=== PATIENT | male | born 1960 | race Caucasian/White ===

== ENCOUNTER 2025-05-20 18:34 | Emergency (ER) | payer OTHER ==
[~2025-05-20] VITALS: Ht 170.2 cm; Wt 50.0 kg
[2025-05-20 18:43] VITALS: O2SAT 95
[2025-05-21] MEDS: TETANUS, DIPHTHERIA, PERTUSSIS VAC/PF 0.5ML (>10YR OLD) IM ONE (01:27)
[2025-05-21 01:30] VITALS: BP 90/55; PULSE 89; RESP 14; TEMP 37.3; O2SAT 95
== END 2025-05-21 01:38 | disposition home or self-care (01) ==
LOC: ER 18:34 → EDBD 18:34 → ER 05-21 01:38
DX: S01.81XA Laceration without foreign body of other part of head, initial encounter (principal); F17.200 Nicotine dependence, unspecified, uncomplicated; I67.82 Cerebral ischemia; W18.30XA Fall on same level, unspecified, initial encounter; Y93.89 Activity, other specified; Y92.89 Other specified places as the place of occurrence of the external cause; Y99.8 Other external cause status
CPT/HCPCS: 70450; 70486; 99284; Z7610 ×4